=== PATIENT | male | born 1970 | race Caucasian/White ===

== ENCOUNTER → 2024-05-17 | Outpatient (CLI) | payer OTHER ==
[2024-05-17 14:32] VITALS: BP 183/107; PULSE 87; RESP 16
--- NOTE | 2024-05-17 14:59 | P.PAINPG ---
PQRS Measure Charge Sheet Comment: HISTORY OF PRESENT ILLNESS: A 53 yr old male as a referral from Dr Schuster presents today w severe and chronic L sided neck pain secondary to DDD, spondylosis and facet arthropathy without myelopathy for evaluation. Pt states pain level is provoked at 7 /10 in intensity, constant, localized in the L jaw and cervical spine, predominantly axial, burning in character w occasional shooting pain towards the L side of face and LUE. Pain is provoked by cold weather. Pain is alleviated by physician guided home exercises 3 times weekly since Apr 2024. medications (Neurontin, Robaxin), repositioning and rest . Cervical disability score at 22. 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 Negative x3 FH: Non contributory All: See list Meds: See list REVIEW OF ORGAN SYSTEMS: CONSTITUTIONAL: No fevers or chills. No recent weight loss. NEUROLOGICAL: + numbness and tingling along the distal extremities. No seizure disorders or headaches. MUSCULOSKELETAL: + pain PSYCHIATRIC: Denies current depression or suicidal thoughts. Physical Examinations : Constitutional : Cooperative , not in acute distress . Neurologic : Cranial nerve II to XII intact. No focal neurological deficits. Psychiatric : alert & oriented x 3. Matching mood & appropriate affect. Judgment & insight intact. Musculoskeletal : Cervical Spine Motor strength in the deltoid and biceps: Normal right side. Normal Left side Motor strength biceps and the wrist extensors: Normal right side . Normal left side Motor strength in the triceps muscle: Normal right side. Normal left side Deep tendon reflexes: Normal at the biceps. Normal at Brachioradialis. Normal at triceps Vertebral body tenderness to deep palpation over Cervical facet loading test: positive bilaterally Spurling test: positive bilaterally Neck distraction test: positive bilaterally Dm sign: positive bilaterally Lumbar spine Motor strength lower extremities ,thigh and legs 5/5 Right side , 5/5 Left side Deep tendon reflexes : Normal Knee Jerk. Normal Ankle Jerk Vertebral body tenderness over Cruz Test positive Lumbar facet Loading Test: positive Right / positive Left Range of motion of the lumbar spine Flexion 30 degrees, extension 10 degrees Straight Leg Raise test: Left/ Right positive at degrees Edi test: positive right / positive left. Severe tenderness over the Sacroiliac joint on the Right / Left sides Gaenslen test: positive bilaterally Seated flexion test: positive bilaterally. Sacral spine : Severe tenderness over the Sacroiliac joint: right side / left side Range of motion: Flexion of the lumbar spine <60 degrees Range of motion: Extension of the lumbar spine <20 degrees Gaenslen's Test positive Edi test: positive right side / left side Thigh Thrust Test Sacral Thrust Test Imaging: Awaiting cervical spine records from Dr Da Silva's office and [facility] in [place] Assessment/ Plan : L Trigeminal Neuralgia Recommendation of L Trigeminal Nerve Block #1. May need a series of injections for optimal pain relief. Risks, benefits of procedure discussed and patient verbalized understanding. Admits to anti- coagulant use or medical history of diabetes. Protocol for discontinuation/ continuation of medications darin procedure discussed. All questions answered. I have spent greater than 30 minutes on patient care today. Dr Quintero was available by phone for the evaluation of this patient. The time was used to review the medical records including relevant urine studies and Prescription history (MAPs), review of the available imaging, evaluation and examination of the patient, coordination of care with the medical staff and if applicable referring physicians, as well as creation of the medical record Controlled Substance Measures - Controlled Substance Measures Is patient prescribed a controlled substance at discharge?: No
== END ==
LOC: PNWHC3 13:14
PROVIDERS: ATTEND Specialist
DX: G50.0 Trigeminal neuralgia (principal); I10 Essential (primary) hypertension; E11.9 Type 2 diabetes mellitus without complications; E78.2 Mixed hyperlipidemia; E11.42 Type 2 diabetes mellitus with diabetic polyneuropathy; E11.51 Type 2 diabetes mellitus with diabetic peripheral angiopathy without gangrene; Z00.00 Encounter for general adult medical examination without abnormal findings; Z23 Encounter for immunization; Z68.33 Body mass index [BMI] 33.0-33.9, adult; Z12.11 Encounter for screening for malignant neoplasm of colon; Z12.5 Encounter for screening for malignant neoplasm of prostate; Z79.899 Other long term (current) drug therapy; Z79.84 Long term (current) use of oral hypoglycemic drugs
CPT/HCPCS: 99202

== ENCOUNTER → 2024-07-11 | Outpatient (CLI) | payer OTHER ==
[2024-07-11 08:04] VITALS: BP 157/97; PULSE 77; RESP 16; TEMP 98.3
--- NOTE | 2024-07-11 15:19 | P.PAINPG ---
PQRS Measure Charge Sheet Comment: HISTORY OF PRESENT ILLNESS: A 54 yr old male presents today w severe and chronic L sided neck pain secondary to DDD, spondylosis and facet arthropathy without myelopathy for evaluation. L Trigeminal Nerve block was cancelled by pt's insurance plan. Pt states pain level is provoked at 7-8 /10 in intensity, constant, localized in the L jaw and cervical spine, predominantly axial, stabbing in character w occasional shooting pain towards the L side of face and LUE. Pain is provoked by cold weather. Pain is alleviated by physician guided home exercises 3 times weekly since Apr 2024. medications, repositioning and rest. Interventional procedures include Medications include Neurontin, Robaxin REVIEW OF ORGAN SYSTEMS: CONSTITUTIONAL: No fevers or chills. No recent weight loss. NEUROLOGICAL: + numbness and tingling along the distal extremities. No seizure disorders or headaches. MUSCULOSKELETAL: + pain PSYCHIATRIC: Denies current depression or suicidal thoughts. Physical Examinations : Constitutional : Cooperative , not in acute distress . Neurologic : Cranial nerve II to XII intact. No focal neurological deficits. Psychiatric : alert & oriented x 3. Matching mood & appropriate affect. Judgment & insight intact. Musculoskeletal : Cervical Spine Motor strength in the deltoid and biceps: Normal right side. Normal Left side Motor strength biceps and the wrist extensors: Normal right side . Normal left side Motor strength in the triceps muscle: Normal right side. Normal left side Deep tendon reflexes: Normal at the biceps. Normal at Brachioradialis. Normal at triceps Vertebral body tenderness to deep palpation over Cervical facet loading test: positive bilaterally Spurling test: positive bilaterally Neck distraction test: positive bilaterally Dm sign: positive bilaterally Lumbar spine Motor strength lower extremities ,thigh and legs 5/5 Right side , 5/5 Left side Deep tendon reflexes : Normal Knee Jerk. Normal Ankle Jerk Vertebral body tenderness over Cruz Test positive Lumbar facet Loading Test: positive Right / positive Left Range of motion of the lumbar spine Flexion 30 degrees, extension 10 degrees Straight Leg Raise test: Left/ Right positive at degrees Edi test: positive right / positive left. Severe tenderness over the Sacroiliac joint on the Right / Left sides Gaenslen test: positive bilaterally Seated flexion test: positive bilaterally. Sacral spine : Severe tenderness over the Sacroiliac joint: right side / left side Range of motion: Flexion of the lumbar spine <60 degrees Range of motion: Extension of the lumbar spine <20 degrees Gaenslen's Test positive Edi test: positive right side / left side Thigh Thrust Test Sacral Thrust Test Imaging: Awaiting cervical spine records from Dr Da Silva's office and [facility] Assessment/ Plan : L Trigeminal Neuralgia Recommendation of medication management. Neurontin 300mg titrate to TID dosing #90, Elavil 25mg #30 w 1 RF. Use, side effects, adverse reactions, safe storage discussed. All questions answered. I have spent greater than 30 minutes on patient care today. Dr Quintero was available by phone for the evaluation of this patient. The time was used to review the medical records including relevant urine studies and Prescription history (MAPs), review of the available imaging, evaluation and examination of the patient, coordination of care with the medical staff and if applicable referring physicians, as well as creation of the medical record - Pain Location Left Face Pharmacological Interventions: PRN Medication PQRS Narrative: Hx Alcohol Use (MH) No Home Medications: Ambulatory Orders Atorvastatin [Lipitor] 10 mg PO DAILY 05/17/24 Empagliflozin [Jardiance] 10 mg PO 05/17/24 Losartan [Cozaar] 25 mg PO DAILY 05/17/24 carvediloL 12.5 mg PO 05/17/24 methocarbamoL [Robaxin] 500 mg PO DAILY 05/17/24 Amitriptyline HCl [Elavil] 25 mg PO HS 30 Days #30 tablet 07/11/24 Gabapentin 300 mg PO TID 30 Days #90 cap 07/11/24 Controlled Substance Measures - Controlled Substance Measures Is patient prescribed a controlled substance at discharge?: No
== END ==
LOC: PNWHC3 07:12
PROVIDERS: ATTEND Specialist
DX: G50.0 Trigeminal neuralgia (principal); M47.816 Spondylosis without myelopathy or radiculopathy, lumbar region
CPT/HCPCS: 99211

== ENCOUNTER → 2024-08-15 | Outpatient (CLI) | payer OTHER ==
[2024-08-15 08:31] VITALS: BP 159/103; PULSE 83; RESP 18; TEMP 98
--- NOTE | 2024-08-15 13:14 | P.PAINPG ---
Objective - Vital Signs Vital signs: Intake & Output 08/14/24 08/15/24 08/15/24 18:59 06:59 18:59 Weight 233 kg PQRS Measure Charge Sheet Comment: HISTORY OF PRESENT ILLNESS: A 54 yr old male presents today w severe and chronic L sided neck pain secondary to radiculopathy, spondylosis and facet arthropathy without myelopathy, L Trigeminal Neuralgia for evaluation. Pt states pain level is provoked at 7-8 /10 in intensity, constant, localized in the L jaw and cervical spine, predominantly axial, stabbing in character w occasional shooting pain towards the L fingers. Pain is provoked by cold weather. Pain is alleviated by physician guided home exercises 3 times weekly since Apr 2024. medications, repositioning and rest. Interventional procedures include Medications include Neurontin, Robaxin, Elavil REVIEW OF ORGAN SYSTEMS: CONSTITUTIONAL: No fevers or chills. No recent weight loss. NEUROLOGICAL: + numbness and tingling along the distal extremities. No seizure disorders or headaches. MUSCULOSKELETAL: + pain PSYCHIATRIC: Denies current depression or suicidal thoughts. Physical Examinations : Constitutional : Cooperative , not in acute distress . Neurologic : Cranial nerve II to XII intact. No focal neurological deficits. Psychiatric : alert & oriented x 3. Matching mood & appropriate affect. Judgment & insight intact. Musculoskeletal : Cervical Spine Motor strength in the deltoid and biceps: Normal right side. Normal Left side Motor strength biceps and the wrist extensors: Normal right side . Normal left side Motor strength in the triceps muscle: Normal right side. Normal left side Deep tendon reflexes: Normal at the biceps. Normal at Brachioradialis. Normal at triceps Vertebral body tenderness to deep palpation over Cervical facet loading test: positive bilaterally Spurling test: positive bilaterally Neck distraction test: positive bilaterally Dm sign: positive bilaterally Lumbar spine Motor strength lower extremities ,thigh and legs 5/5 Right side , 5/5 Left side Deep tendon reflexes : Normal Knee Jerk. Normal Ankle Jerk Vertebral body tenderness over Cruz Test positive Lumbar facet Loading Test: positive Right / positive Left Range of motion of the lumbar spine Flexion 30 degrees, extension 10 degrees Straight Leg Raise test: Left/ Right positive at degrees Edi test: positive right / positive left. Severe tenderness over the Sacroiliac joint on the Right / Left sides Gaenslen test: positive bilaterally Seated flexion test: positive bilaterally. Sacral spine : Severe tenderness over the Sacroiliac joint: right side / left side Range of motion: Flexion of the lumbar spine <60 degrees Range of motion: Extension of the lumbar spine <20 degrees Gaenslen's Test positive Edi test: positive right side / left side Thigh Thrust Test Sacral Thrust Test Imaging: Awaiting cervical spine records from Dr Da Silva's office and [facility] in [place] Assessment/ Plan : Cervical radiculopathy, L Trigeminal Neuralgia Recommendation of L Trigeminal Nerve Block. Risks, benefits of procedure discussed and pt verbalized understanding. Protocol for discontinuation/ continuation of medications darin procedure discussed. Minimal anesthesia including Fentanyl and Versed if clinically indicated. All questions answered. I have spent greater than 30 minutes on patient care today. Dr Quintero was available by phone for the evaluation of this patient. The time was used to review the medical records including relevant urine studies and Prescription history (MAPs), review of the available imaging, evaluation and examination of the patient, coordination of care with the medical staff and if applicable referring physicians, as well as creation of the medical record PQRS Narrative: Hx Alcohol Use (MH) No Home Medications: Ambulatory Orders Atorvastatin [Lipitor] 10 mg PO DAILY 05/17/24 Empagliflozin [Jardiance] 10 mg PO 05/17/24 Losartan [Cozaar] 25 mg PO DAILY 05/17/24 carvediloL 12.5 mg PO 05/17/24 methocarbamoL [Robaxin] 500 mg PO DAILY 05/17/24 Amitriptyline HCl [Elavil] 25 mg PO HS 30 Days #30 tablet 07/11/24 Gabapentin 300 mg PO TID 30 Days #90 cap 07/11/24 Controlled Substance Measures - Controlled Substance Measures Is patient prescribed a controlled substance at discharge?: No
== END ==
LOC: PNWHC3 08:03
PROVIDERS: ATTEND Specialist
DX: G50.0 Trigeminal neuralgia (principal)
CPT/HCPCS: 99211

== ENCOUNTER 2024-08-31 06:42 | Day surgery (SDC) | payer OTHER ==
[~2024-08-31 06:42] MED LIST: LACTATED RINGERS 1,000 ML IV SCH
[2024-08-31 07:26] VITALS: TEMP 98.1
[2024-08-31 07:30] LABS: Glucose,Whole Blood 130 mg/dL (70-110)
[2024-08-31] MEDS: IV FLUID CONTINUATION 1,000 ML IV ONE ×2 (07:30→08:36)
[2024-08-31] MEDS ORDERED: fentaNYL (PF) 50 MCG/ML 2 ML AMP ONE (08:13)
[2024-08-31] MEDS ORDERED: MIDAZOLAM 2 MG/2 ML VIAL ONE (08:13)
[2024-08-31] MEDS ORDERED: DEXAMETHASONE SOD PHOSPHATE 10 MG/ML 1 ML VIAL ONE (08:13)
[2024-08-31] MEDS ORDERED: IOPAMIDOL M200 10 ML VIAL ONE (08:13)
--- NOTE | 2024-08-31 08:36 | P.PCN ---
Date of Procedure: 08/31/24 Procedure(s) Performed: PREOPERATIVE DIAGNOSIS : 1-Left side trigeminal neuralgia POSTOPERATIVE DIAGNOSIS: 1-Left side trigeminal neuralgia PROCEDURE: Left side trigeminal nerve block under fluoroscopy guidance(fluoroscopy images available in the radiology Department ) ANESTHESIA: moderate sedation with intravenous Versed 2 mg and Fentanyl 100 mcg. (sedations start time 08:18,end time 08:29 ) EBL: Minimal COMPLICATION: None PROCEDURE INDICATION: Chronic right-sided facial pain secondary to right side trigeminal nerve neuralgia, unresponsive to conservative treatment. PROCEDURE DESCRIPTION: the patient was seen and identified in the preop holding area , risks and benefits and possible complications of the procedure and alternative were discussed with the patient, and the patient agreed to proceed with the procedure and signed the consent and vital signs monitored during the procedure and fluoroscopy was used to maximize the benefit and accuracy of the needle placement, and sedation was given to decrease patient anxiety, patient was taken to the procedure room and placed in supine position vital signs monitored in the Right side of the face prepped with chlorhexidine X3 , cold infiltration of the skin and subcutaneous tissue with lidocaine 1% 2 mL 1 inch lateral to the opening of the mouth on the right side,then 22 inch Quincke type spinal needle advanced slowly under fluoroscopy and placed at the foraminal oval on the right side needle placement confirmed with AP oblique and lateral view and after appropriate needle placement confirmed, and after negative aspiration for heme and CSF and there was no paresthesia , Isovoue 200 , half mL injected and showed positive spread in the foramine ovale , and the trigeminal nerve distributions ,then 20 mg Dexamethasone mixed with 10 mg lidocaine 1% PF injected after negative aspiration, the needle subsequently removed . At the end of the procedure and the needles removed and a bandage applied after the skin was cleaned the cleaning solution patient taken to recovery room in stable condition and monitors in the recovery room for 20-30 minutes and discharged home in stable condition after discharge criteria met and patient will follow up with the pain clinic in 2-4 weeks
[2024-08-31 08:37] VITALS: RESP 16
[2024-08-31 08:52] VITALS: PULSE 81
[2024-08-31 09:00] VITALS: BP 130/89
--- NOTE | 2024-08-31 09:28 | FL ---
Fluoroscopy History: Trigeminal Nerve Blk Trigeminal Nerve Blk [facility], , 08/31/2024 8:43 AM
== END 2024-08-31 09:05 | disposition home or self-care (01) ==
LOC: ORPAIN 06:42
PROVIDERS: ATTEND Specialist
DX: G50.0 Trigeminal neuralgia (principal); Z79.82 Long term (current) use of aspirin; Z79.899 Other long term (current) drug therapy
CPT/HCPCS: 64400; 99152; J2250; J1100; J3010; Q9966

== ENCOUNTER → 2024-09-19 | Outpatient (CLI) | payer OTHER ==
[2024-09-19 08:16] VITALS: BP 132/85; PULSE 84; RESP 16
--- NOTE | 2024-09-19 16:03 | P.PAINPG ---
PQRS Measure Charge Sheet Comment: HISTORY OF PRESENT ILLNESS: A 54 yr old male presents today w severe and chronic L sided neck pain secondary to radiculopathy, spondylosis and facet arthropathy without myelopathy, L Trigeminal Neuralgia for evaluation s/p L Trigeminal Nerve Block #1. Pt states he experienced >60 % pain relief x 2-3 wks s/p procedure. Pt states pain level is provoked at 7-8 /10 in intensity, constant, localized in the L jaw and cervical spine, predominantly axial, stabbing in character w occasional shooting pain towards the L fingers. Pain is provoked by cold weather. Pain is alleviated by physician guided home exercises 3 times weekly since Apr 2024. medications, repositioning and rest. Interventional procedures include L Trigeminal Nerve Block x1 Medications include Neurontin, Robaxin, Elavil REVIEW OF ORGAN SYSTEMS: CONSTITUTIONAL: No fevers or chills. No recent weight loss. NEUROLOGICAL: + numbness and tingling along the distal extremities. No seizure disorders or headaches. MUSCULOSKELETAL: + pain PSYCHIATRIC: Denies current depression or suicidal thoughts. Physical Examinations : Constitutional : Cooperative , not in acute distress . Neurologic : Cranial nerve II to XII intact. No focal neurological deficits. Psychiatric : alert & oriented x 3. Matching mood & appropriate affect. Judgment & insight intact. Musculoskeletal : Cervical Spine Motor strength in the deltoid and biceps: Normal right side. Normal Left side Motor strength biceps and the wrist extensors: Normal right side . Normal left side Motor strength in the triceps muscle: Normal right side. Normal left side Deep tendon reflexes: Normal at the biceps. Normal at Brachioradialis. Normal at triceps Vertebral body tenderness to deep palpation over Cervical facet loading test: positive bilaterally Spurling test: positive bilaterally Neck distraction test: positive bilaterally Dm sign: positive bilaterally Lumbar spine Motor strength lower extremities ,thigh and legs 5/5 Right side , 5/5 Left side Deep tendon reflexes : Normal Knee Jerk. Normal Ankle Jerk Vertebral body tenderness over Cruz Test positive Lumbar facet Loading Test: positive Ri ght / positive Left Range of motion of the lumbar spine Flexion 30 degrees, extension 10 degrees Straight Leg Raise test: Left/ Right positive at degrees Edi test: positive right / positive left. Severe tenderness over the Sacroiliac joint on the Right / Left sides Gaenslen test: positive bilaterally Seated flexion test: positive bilaterally. Sacral spine : Severe tenderness over the Sacroiliac joint: right side / left side Range of motion: Flexion of the lumbar spine <60 degrees Range of motion: Extension of the lumbar spine <20 degrees Gaenslen's Test positive Edi test: positive right side / left side Thigh Thrust Test Sacral Thrust Test Imaging: Awaiting cervical spine records from Dr Da Silva's office and [facility] in [place] Assessment/ Plan : Cervical radiculopathy, L Trigeminal Neuralgia Recommendation of L Trigeminal nerve block #2. Risks, benefits of procedure discussed and pt verbalized understanding. Protocol for discontinuation/ continuation of medications darin procedure discussed. Minimal anesthesia including Fentanyl and Versed if clinically indicated. All questions answered. I have spent greater than 30 minutes on patient care today. Dr Quintero was available by phone for the evaluation of this patient. The time was used to review the medical records including relevant urine studies and Prescription history (MAPs), review of the available imaging, evaluation and examination of the patient, coordination of care with the medical staff and if applicable referring physicians, as well as creation of the medical record - Pain Location Face Pharmacological Interventions: Block PQRS Narrative: Narcotic Agreement Date Signed 08/15/24 Hx Alcohol Use (MH) No Home Medications: Ambulatory Orders Atorvastatin [Lipitor] 10 mg PO DAILY 05/17/24 Empagliflozin [Jardiance] 10 mg PO DAILY 05/17/24 Losartan [Cozaar] 25 mg PO DAILY 05/17/24 carvediloL 12.5 mg PO DAILY 05/17/24 Cholecalciferol [Vitamin D3 (25 Mcg = 1000 Iu)] 25 mcg PO DAILY 08/29/24 Vitamin E (Dl,Tocopheryl Acet) [Vitamin E (100 Iu = 45MG)] 45 mg PO DAILY 08/29/24 Controlled Substance Measures - Controlled Substance Measures Is patient prescribed a controlled substance at discharge?: No
== END ==
LOC: PNWHC3 07:45
PROVIDERS: ATTEND Specialist
DX: G50.0 Trigeminal neuralgia (principal)
CPT/HCPCS: 99211

== ENCOUNTER → 2024-11-02 | Day surgery (SDC) | payer OTHER ==
[~2024-11-02] MED LIST changes: +DEXAMETHASONE SOD PHOSPHATE 10 MG/ML 1 ML VIAL ONE; +IOPAMIDOL M200 10 ML VIAL ONE; -LACTATED RINGERS 1,000 ML IV SCH; +MIDAZOLAM 2 MG/2 ML VIAL ONE; +fentaNYL (PF) 50 MCG/ML 2 ML AMP ONE
[2024-11-02 08:28] VITALS: TEMP 97.6
[2024-11-02] MEDS: IV FLUID CONTINUATION 1,000 ML IV ONE ×2 (08:35→10:01)
[2024-11-02] MEDS: LACTATED RINGERS 1,000 ML IV SCH (08:40)
[2024-11-02 08:44] LABS: Glucose,Whole Blood 141 mg/dL (70-110)
--- NOTE | 2024-11-02 10:00 | P.PCN ---
Date of Procedure: 11/02/24 Procedure(s) Performed: PREOPERATIVE DIAGNOSIS : 1-Left side trigeminal neuralgia POSTOPERATIVE DIAGNOSIS: 1-Left side trigeminal neuralgia PROCEDURE: Left side trigeminal nerve block under fluoroscopy guidance(fluoroscopy images available in the radiology Department ) ANESTHESIA: moderate sedation with intravenous Versed 2 mg and Fentanyl 50 mcg. (sedations start time 09:47 ,end time 09:55 ) EBL: Minimal COMPLICATION: None PROCEDURE INDICATION: Chronic right-sided facial pain secondary to right side trigeminal nerve neuralgia, unresponsive to conservative treatment. PROCEDURE DESCRIPTION: the patient was seen and identified in the preop holding area , risks and benefits and possible complications of the procedure and alternative were discussed with the patient, and the patient agreed to proceed with the procedure and signed the consent and vital signs monitored during the procedure and fluoroscopy was used to maximize the benefit and accuracy of the needle placement, and sedation was given to decrease patient anxiety, patient was taken to the procedure room and placed in supine position vital signs monitored in the Right side of the face prepped with chlorhexidine X3 , cold infiltration of the skin and subcutaneous tissue with lidocaine 1% 2 mL 1 inch lateral to the opening of the mouth on the right side,then 22 inch Quincke type spinal needle advanced slowly under fluoroscopy and placed at the foraminal oval on the right side needle placement confirmed with AP oblique and lateral view and after appropriate needle placement confirmed, and after negative aspiration for heme and CSF and there was no paresthesia , Isovoue 200 , half mL injected and showed positive spread in the foramine ovale , and the trigeminal nerve distributions ,then 20 mg Dexamethasone mixed with 10 mg lidocaine 1% PF injected after negative aspiration, the needle subsequently removed . At the end of the procedure and the needles removed and a bandage applied after the skin was cleaned the cleaning solution patient taken to recovery room in stable condition and monitors in the recovery room for 20-30 minutes and discharged home in stable condition after discharge criteria met and patient will follow up with the pain clinic in 2-4 weeks
[2024-11-02 10:07] VITALS: RESP 16
[2024-11-02 10:16] VITALS: BP 164/84; PULSE 76
--- NOTE | 2024-11-02 11:56 | FL ---
EXAMINATION TYPE: FL guided pain mgmt statistic DATE OF EXAM: 11/02/2024 FLUOROSCOPY Rt Trigeminal nerve 5sec fluoro time .[id number] Lamb 4 images are provided. [facility], , 11/02/2024 11:53 AM
== END ==
LOC: ORPAIN 07:16
PROVIDERS: ATTEND Specialist
DX: G50.0 Trigeminal neuralgia (principal); Z86.73 Personal history of transient ischemic attack (TIA), and cerebral infarction without residual deficits; Z79.82 Long term (current) use of aspirin
CPT/HCPCS: 64400; 99152; J2250; J1100; J3010; Q9966